=== PATIENT | female | born 1980 | race Caucasian/White ===

== ENCOUNTER 2019-06-08 15:47 | Emergency (ER) | payer OTHER ==
[~2019-06-08] VITALS: Ht 165.1 cm; Wt 79.8 kg
--- OUTSIDE RECORDS SUMMARY | 2019-06-08 15:50 | XMS ---
PreManage Notification: MARY DOMINGO Security Health Inspector Food Events No recent Security Events currently on file CRITERIA MET - [facility] - 2 Visits in 30 Days CARE PROVIDERS DEWEY TRUJILLO Nurse Practitioner: Family 05/14/2019-Current PHONE: Unknown ANNIE PERALTA Current PHONE: Unknown ELENA WOOD Counselor: Mental Health Current PHONE: [phone] RONNIE PALOMO Primary Care 05/14/2019-Current PHONE: [phone] RONNIE PALOMO Primary Care Current PHONE: Unknown [facility] [address] Primary Care Current PHONE: Unknown [place] has no Care Guidelines for this patient. [facility] (12 MO.) [facility] 2 NOTE: Visits indicate total known visits. ED/UCC VISIT TRACKING (12 MO.) 06/08/2019 15:[address] [facility] [place] TYPE: Emergency COMPLAINT: - POSSIBLE OVERDOSE 05/18/2019 13:54 [facility] [place] TYPE: Emergency COMPLAINT: - Feeling Suicidal DIAGNOSES: - Feeling Suicidal - Suicidal ideations - Suicidal INPATIENT VISIT TRACKING (12 MO.) No inpatient visits to display in this time frame [id number]
--- NOTE | 2019-06-08 17:22 | EKG ---
[facility] [address] [facility] [place], [place] [address] Signed Sinus tachycardia Otherwise normal ECG No previous ECGs available Confirmed by ADI PEDRAZA MD ([id number]) on 06/08/2019 5:22:34 PM Electronically Signed By: ADI PEDRAZA MD 06/08/19 1722 PATIENT NAME: MARY DOMINGO Electrocardiogram DATE OF : 82 PHYSICIAN: ADI PEDRAZA MD REPORT #: [id number] REPORT IS CONFIDENTIAL AND NOT TO BE RELEASED WITHOUT AUTHORIZATION
--- NOTE | 2019-06-09 15:40 | EKG ---
[facility] [address] [facility] [place] [address] Signed Normal sinus rhythm with sinus arrhythmia Low voltage QRS Borderline ECG When compared with ECG of 08-JUN-2019 16:08, Nonspecific T wave abnormality, worse in Anterior leads Confirmed by ADI PEDRAZA MD ([id number]) on 06/09/2019 3:40:37 PM Electronically Signed By: ADI PEDRAZA MD 06/09/19 1540 PATIENT NAME: CLAUDE DOMINGOSwapnil TEJEDA Electrocardiogram DATE OF : 82 PHYSICIAN: ADI PEDRAZA MD REPORT #: [id number] REPORT IS CONFIDENTIAL AND NOT TO BE RELEASED WITHOUT AUTHORIZATION
== END 2019-06-09 11:44 | disposition short-term general hospital (02) ==
LOC: ED 15:47
DX: T43.222A Poisoning by selective serotonin reuptake inhibitors, intentional self-harm, initial encounter (principal); T39.312A Poisoning by propionic acid derivatives, intentional self-harm, initial encounter; Z87.891 Personal history of nicotine dependence
CPT/HCPCS: 80048; 80053; 80176; 81001; 84443; 84703; 85025; 93005; 93010; 96361; 96374; 96375; 99285-25; G0480; J2060; J2405; J7030

== ENCOUNTER 2020-03-05 06:50 | Day surgery (SDC) | payer OTHER ==
[~2020-03-05] VITALS: Ht 165.1 cm; Wt 83.9 kg
[2020-03-05] MEDS ORDERED: NORCO 5-325 TA1 EACH PO (09:29)
--- NOTE | 2020-03-05 09:55 | NUR ---
03/05/20 0955 Rg Dominique REPOSITIONED PT IN BED AND GAVE SIPS OF WATER WITOUT PROBLEMS. CONTINUES TO DENY ANY NAUSEA OR PAIN. SITTING AT EDGE OF BED REVIEWING DISCHARGE INSTRUCTIONS. COPY OF MD INSTRUCTIONS GIVEN WITH COPY OF DISCHARGE INSTRUCTIONS
--- NOTE | 2020-03-06 10:17 | OR ---
[facility] [address] [facility] [place] [address] Signed DATE OF OPERATION: 03/05/2020 SURGEON: Loraine Rashid MD PREOPERATIVE DIAGNOSIS: Carpal tunnel syndrome, right. POSTOPERATIVE DIAGNOSIS: Carpal tunnel syndrome, right. PROCEDURE PERFORMED: Carpal tunnel release, right. BUTCHER: SHAYY Yeung. ANESTHESIA: Calhan block. TOURNIQUET TIME: 20 minutes. BRIEF HISTORY: Mary is a 39-year-old female with symptoms of carpal tunnel. Nerve conduction studies were consistent with this as well. Risks and benefits of operative treatment were discussed with her and she elected to proceed. DESCRIPTION OF PROCEDURE: Once consent was obtained, she was taken to the operating room. After adequate anesthesia, she was placed on operating table, all downside pressure points were well padded. The right arm was prepped and draped in a standard sterile fashion. A 1.5 cm incision was made in the distal wrist crease, carried through skin and subcutaneous tissue. There was a small palmaris longus was retracted and protected. The transverse carpal ligament was identified under loupe magnification and it was released proximally a cm distally a stoyquqdad-pyv-l-half distal extent. This was palpated using the Horse Shoe and found to be completely released. The wound was then copiously irrigated with antibiotic solution, closed with 3-0 nylon . The wound was dressed with bacitracin, Adaptic, 4 x 8s, and gauze. She tolerated the procedure well. All sponge, needle and instrument counts were correct. Electronically Signed By: LORAINE RASHID MD 03/06/20 1017 PATIENT NAME: MARY DOMINGO OPERATIVE REPORT DATE OF : 82 REPORT #: [id number] PHYSICIAN: LORAINE RASHID MD PCP: KASSI BHAT PA-C REPORT IS CONFIDENTIAL AND NOT TO BE RELEASED WITHOUT AUTHORIZATION [address] [place], [place] [address] Signed Loraine Rashid MD BA/MODL /[id number] Copies: ~ Electronically Signed By: LORAINE RASHID MD 03/06/20 1017 PATIENT NAME: MARY DOMINGO OPERATIVE REPORT DATE OF : 82 REPORT #: [id number] PHYSICIAN: LORAINE RASHID MD PCP: KASSI BHAT PA-C REPORT IS CONFIDENTIAL AND NOT TO BE RELEASED WITHOUT AUTHORIZATION
== END 2020-03-05 10:08 | disposition home or self-care (01) ==
LOC: DS 06:50
PROVIDERS: Specialist
PROC: 01N50ZZ Release Median Nerve, Open Approach (ICD-10-PCS; principal; 2020-03-05 08:00)
DX: G56.01 Carpal tunnel syndrome, right upper limb (principal); Z87.891 Personal history of nicotine dependence
CPT/HCPCS: 01810; J0690; J1100; J1885; J2250; J2405; J2704; J2765; J3010; J7121